=== PATIENT | male | born 1950 | race Caucasian/White ===

== ENCOUNTER 2020-10-15 09:39 | Outpatient (CLI) | payer MEDICARE, OTHER | END 2020-10-15 09:40 | disposition home or self-care (01) | LOC: BUREKG 09:39 | PROVIDERS: ATTEND Orthopaedic Surgery Sports Medicine | DX: Z01.818 Encounter for other preprocedural examination (principal) | CPT/HCPCS: 93005; 93010 ==

== ENCOUNTER 2020-10-20 08:43 | Outpatient (CLI) | payer MEDICARE, OTHER | END 2020-10-20 08:44 | disposition home or self-care (01) | LOC: BURRAD 08:43 | PROVIDERS: ATTEND Nurse Practitioner | DX: Z01.818 Encounter for other preprocedural examination (principal) | CPT/HCPCS: 71046 ==